=== PATIENT | female | born 1985 | race Caucasian/White ===

== ENCOUNTER 2018-05-17 10:17 | Day surgery (SDC) | payer OTHER ==
[~2018-05-17 10:17] MED LIST: CLONAZEPAM1 MG PO
== END 2018-05-17 17:40 | disposition home or self-care (01) ==
LOC: CIR.AMB 10:17 → EDBD 10:30 → CIR.AMB 17:40
DX: N84.0 Polyp of corpus uteri (principal); N70.11 Chronic salpingitis